=== PATIENT | female | born 1985 | race Caucasian/White ===

== ENCOUNTER 2018-11-15 17:26 | Emergency (ER) | payer BC ==
[~2018-11-15] VITALS: Ht 167.6 cm; Wt 77.1 kg
--- NOTE | 2018-11-15 17:30 | NUR ---
PT BIB SELF C/O flu like sx x 4 days, PT IS AAOX4, NOT IN RESPIRATORY DISTRESS, V/S STABLE, KEPT RESTED AND COMFORTABLE.
--- NOTE | 2018-11-15 17:45 | NUR ---
DR. GOLDMAN AT BEDSIDE FOR EVAL.
[2018-11-15] MEDS ORDERED: IPRATROPIUM NEB FS 0.5 MG/2.5 ML AMPUL.NEB ONE (18:19)
[2018-11-15] MEDS ORDERED: ALBUTEROL FS 2.5 MG/3 ML VIAL.NEB ONE (18:19)
[2018-11-15] MEDS: ALBUTEROL FS 2.5 MG/3 ML VIAL.NEB NEB ONE (18:23)
[2018-11-15] MEDS: IPRATROPIUM NEB FS 0.5 MG/2.5 ML AMPUL.NEB NEB ONE (18:23)
--- NOTE | 2018-11-15 19:25 | NUR ---
Patient discharged to home in stable condition. Written and verbal after care instructions given. Patient verbalizes understanding of instruction.
[2018-11-15 19:26] VITALS: BP 121/78
== END 2018-11-15 19:27 | disposition home or self-care (01) ==
LOC: ER 17:34
DX: J40 Bronchitis, not specified as acute or chronic (principal); H66.92 Otitis media, unspecified, left ear; B34.9 Viral infection, unspecified

== ENCOUNTER 2024-04-12 16:08 | Emergency (ER) | payer BC ==
[~2024-04-12] VITALS: Ht 167.6 cm; Wt 83.9 kg
[2024-04-12] MEDS ORDERED: LIDOCAINE 5% (PATCH) 1 EA PATCH TP ONE (16:59)
[2024-04-12] MEDS ORDERED: IBUPROFEN 400 MG TABLET ONE (16:59)
[2024-04-12] MEDS: IBUPROFEN 400 MG TABLET PO ONE (17:05)
[2024-04-12] MEDS: LIDOCAINE 5% (PATCH) 1 EA PATCH TP SCH (17:05)
[2024-04-12] MEDS ORDERED: LIDO30AD10 TP (17:54)
[2024-04-12] MEDS ORDERED: IBUP-1957 PO (17:54)
[2024-04-12 18:24] VITALS: BP 120/72; TEMP 98.7; O2SAT 98
== END 2024-04-12 18:25 | disposition home or self-care (01) ==
LOC: ER 16:30
DX: M54.2 Cervicalgia (principal); M25.561 Pain in right knee; Z88.1 Allergy status to other antibiotic agents; V44.5XXA Car driver injured in collision with heavy transport vehicle or bus in traffic accident, initial encounter; Y93.89 Activity, other specified; Y92.488 Other paved roadways as the place of occurrence of the external cause; Y99.8 Other external cause status
CPT/HCPCS: 72125-TC; 73564-TC